=== PATIENT | female | born 1950 | race Caucasian/White ===

== ENCOUNTER → 2018-04-01 | Outpatient (CLI) | payer MEDICARE | END | disposition home or self-care (01) | LOC: PCVCCLINIC 15:17 | PROVIDERS: ATTEND Internal Medicine | DX: I10 Essential (primary) hypertension (principal); E78.5 Hyperlipidemia, unspecified; E11.9 Type 2 diabetes mellitus without complications; R93.1 Abnormal findings on diagnostic imaging of heart and coronary circulation; Z79.82 Long term (current) use of aspirin | CPT/HCPCS: 93005; G0463 ==

== ENCOUNTER → 2018-04-01 | Outpatient (CLI) | payer MEDICARE | END | disposition home or self-care (01) | LOC: PCVCCLINIC 13:39 | PROVIDERS: ATTEND Internal Medicine | DX: I10 Essential (primary) hypertension (principal); E78.5 Hyperlipidemia, unspecified; E11.9 Type 2 diabetes mellitus without complications; R93.1 Abnormal findings on diagnostic imaging of heart and coronary circulation; Z79.82 Long term (current) use of aspirin | CPT/HCPCS: 93005; G0463 ==

== ENCOUNTER → 2018-04-17 | Outpatient (CLI) | payer MEDICARE ==
--- NOTE | 2018-04-17 15:48 | PCVCIMAG ---
APPROVED REPORT Study performed: 04/17/2018 11:17:40 EXAM: Comprehensive 2D, Doppler, and color-flow Echocardiogram Patient Location: Echo lab Status: routine BSA: 1.58 HR: 70 bpmBP: 116/72 mmHg Rhythm: NSR Other Information Study Quality: Good Risk Factors: Cardiac Risk Factors: HTN, Hyperlipidemia, DM Indications Elevated CA Score 2D Dimensions IVSd: 13.04 (7-11mm)LVOT Diam: 18.00 (18-24mm) LVDd: 30.43 mm PWd: 12.90 (7-11mm)Ascending Ao: 26.44 (22-36mm) LVDs: 17.81 (25-40mm) Left Atrium: 35.99 (27-40mm) Aortic Root: 26.82 mm LV Single Plane 4CH: 62.66 % LV Single Plane 2CH: 64.29 % Biplane EF: 64.5 % Volumes Left Atrial Volume (Systole) Single Plane 4CH: 45.25 mLSingle Plane 2CH: 33.99 mL LA ESV Index: 27.00 mL/m2 Aortic Valve AoV Peak Yobani.: 1.46 m/s AO Peak Gr.: 8.57 mmHgLVOT Max P.10 mmHg LVOT Max V: 1.01 m/s TRIP Vmax: 1.82 cm2 Mitral Valve E/A Ratio: 0.8 MV Decel. Time: 212.53 ms MV E Max Yobani.: 0.56 m/s MV A Yobani.: 0.71 m/s MV PHT: 61.63 ms IVRT: 72.66 ms TDI E/Lateral E': 8.00E/Medial E': 11.20 Medial E' Yobani.: 0.05 m/s Lateral E' Yobani.: 0.07 m/s Pulmonary Valve PV Peak Yobani.: 0.79 m/sPV Peak Gr.: 2.53 mmHg Pulmonary Vein P Vein S: 0.50 m/sP Vein A: 0.36 m/s P Vein D: 0.33 m/sP Vein A Dur.: 100.3 msec P Vein S/D Ratio: 1.52 Tricuspid Valve TR Peak Yobani.: 2.54 m/sRAP Estimate: 7.00 mmHg TR Peak Gr.: 25.87 mmHg PA Pressure: 33.00 mmHg Left Ventricle The left ventricle is normal size. There is normal LV segmental wall motion. Mild concentric left ventricular hypertrophy. Left ventricular systolic function is normal. The left ventricular ejection fraction is within the normal range. LVEF is 65%. Grade I - abnormal relaxation pattern. Right Ventricle The right ventricle is normal size. The right ventricular systolic function is normal. Atria The left atrium size is normal. The right atrium size is normal. Aortic Valve The aortic valve is normal in structure. No aortic regurgitation is present. There is no aortic valvular stenosis. Mitral Valve The mitral valve is normal in structure. Trace mitral regurgitation. No evidence of mitral valve stenosis. Tricuspid Valve The tricuspid valve is normal in structure. Mild tricuspid regurgitation. Pulmonary artery pressure is 33 mmHg. Pulmonic Valve The pulmonary valve is normal in structure. Trace pulmonic regurgitation. Great Vessels The aortic root is normal in size. IVC is normal in size and collapses >50% with inspiration. Pericardium There is no pericardial effusion. <Conclusion> The left ventricle is normal size. LVEF is 65%. The aortic valve is normal in structure. The mitral valve is normal in structure. Trace mitral regurgitation. The tricuspid valve is normal in structure. Mild tricuspid regurgitation. Pulmonary artery pressure is 33 mmHg. The pulmonary valve is normal in structure. Trace pulmonic regurgitation. There is no pericardial effusion.
--- NOTE | 2018-04-17 16:24 | PCVCIMAG ---
APPROVED REPORT Imaging Protocol: Rest Tc-99m/Stress Tc-99m 1 day Study performed: 04/17/2018 12:42:08 Indication: Chest pain, High Ca Score Patient Location: Out-Patient Stress Nurse: Makenna Swan RN, Jennifer Valencia RN CO Tech:Kiesha Wilsonclaudia [facility] Ht: 5 ft 2 in Wt: 127 lbs BSA: 1.58 m2 HR: 114 bpm BP: 148/80 mmHg BMI: 23.22 Rhythm: Sinus Tachycardia, Non-specific T wave Abn Medical History Medical History: HTN, Hyperlipidemia, CAD, Diabetes Medications: Amlodipine, ASA, Crestor Allergies: No known drug allergies Cardiac Risk Factors: Age, FHX of CAD Pretest Chest Pain Characteristics: No chest pain Exercise History: Physically active Resting Data Rest SPECT myocardial perfusion imaging was performed in supine position 45 minutes following the intravenous injection of 11.4 mCi of Tc-99m Sestamibi. Time of rest injection: 1200 Date: 04/17/2018 Administration Route: IV Administration Site: Right AC Exercise Stress At peak stress, the patient was injected intravenously with 34.6mCi of Tc-99m Sestamibi. Time of stress injection: 1330 Date: 04/17/2018 Administration Route: IV Administration Site: Right AC Patient continued to exercise for 1 minute(s). Gated Stress SPECT was performed 30 minutes after stress injection. The images were gated to evaluate regional wall motion and calculate left ventricular ejection fraction. Stress Test Details Stress Test: Exercise stress testing was performed using a [place] protocol. HRMax Heart Rate (APMHR): 155 bpm Resting HR: 114 bpmTarget HR (85% APMHR): 131 bpm Max HR Achieved: 166 bpm % of APMHR: 107 Recovery HR: 108 bpm BP Resting BP: 148/80 mmHg Max BP: 145/67 mmHg Recovery BP: 143/65 mmHg ECG Resting ECG: Sinus Tachycardia, Non-specific T wave Abn Stress ECG: Sinus Tachycardia, Non-specific T wave Abn ST Change: None Maximum ST Deviation: 0 mm Recovery ECG: Sinus Tachycardia, Non-specific T wave Abn Clinical Reason for Termination: Maximal effort Stress Symptoms: Dyspnea, Leg Fatigue Exercise duration: 5 min 30 sec Exercise capacity: 7 METs Overall Exercise Capacity for Age: Average Scale: Active Angina Score: None Symptoms resolved during recovery. Stress ECG Conclusion 1. Subjectively negative for ischemia 2. Electrocardiographically negative for ischemia 3. Decreased functional capacity Clay Treadmill Score is 5.0 which is Low risk. Study Data Post stress, the left ventricular ejection was 89%.. SSS: 0 SRS: 2 SDS: 0 TID = 1.05. Perfusion There is a medium area of moderately reduced uptake in the entire segment of the inferior wall which is seen on the stress images as well as the resting images. This area thickens and moves normally and is most consistent with attenuation artifact. Wall Motion Normal left ventricular wall motion. Nuclear Conclusion ECG Findings: negative for ischemia Clinical Findings: negative for ischemia Nuclear Findings: negative for ischemia Exercise Capacity: reduced Left Ventricular Function: normal 1. Low risk study <Conclusion> 1. Subjectively negative for ischemia 2. Electrocardiographically negative for ischemia 3. Decreased functional capacity
== END | disposition home or self-care (01) ==
LOC: PCVCIMAG 11:11
PROVIDERS: ATTEND Internal Medicine
DX: I07.1 Rheumatic tricuspid insufficiency (principal); I25.10 Atherosclerotic heart disease of native coronary artery without angina pectoris; E11.9 Type 2 diabetes mellitus without complications; E78.5 Hyperlipidemia, unspecified; I10 Essential (primary) hypertension; R93.1 Abnormal findings on diagnostic imaging of heart and coronary circulation; R07.9 Chest pain, unspecified
CPT/HCPCS: 78452; 93017; 93306; A9500